=== PATIENT | female | born 1995 | race Caucasian/White ===

== ENCOUNTER 2023-12-03 08:02 | Inpatient (IN) | payer BC ==
[~2023-12-03 08:02] MED LIST: Bupivacaine 0.25% 10 ML SDV ONE; Sodium Chloride 0.9% 10 ML Syringe FLUSH PRN; Sodium Chloride 0.9% 10 ML Syringe FLUSH SCH; Sodium Chloride 0.9% 100 ML ONE; Sodium Chloride 0.9% 50 ML SDV ONE
[2023-12-03] MEDS: Lactated Ringers 1,000 ML IV SCH ×2 (08:30→16:11)
[2023-12-03 08:35] LABS: BASOPHILS PERCENT AUTO 0.3 % (0.0-1.0); EOSINOPHILS ABSOLUTE AUTO 0.1 K/mm3 (0.0-0.4); EOSINOPHILS PERCENT AUTO 1.5 % (0.0-6.0); HEMATOCRIT 40.2 % (37.0-47.0); HEMOGLOBIN 13.1 gm/dl (12.0-16.0); IMMATURE GRAN ABSOLUTE AUTO 0.02 K/mm3 (0.00-0.05); IMMATURE GRAN PERCENT AUTO 0.3 % (0.0-0.4); LYMPHOCYTES ABSOLUTE AUTO 1.6 K/mm3 (1.0-4.8); LYMPHOCYTES PERCENT AUTO 23.6 % (24.0-44.0); MEAN CORPUSCULAR HEMOGLOBIN 27.6 pg (28.0-32.0); MEAN CORPUSCULAR HGB CONC 32.6 g/dl (32.0-36.0); MEAN CORPUSCULAR VOLUME 84.6 fl (83.0-99.0); MEAN PLATELET VOLUME 9.1 fl (9.4-12.3); MONOCYTES ABSOLUTE AUTO 0.4 K/mm3 (0.0-0.8); MONOCYTES PERCENT AUTO 6.1 % (0.0-8.0); NEUTROPHILS ABSOLUTE AUTO 4.7 K/mm3 (1.8-7.7); NEUTROPHILS PERCENT AUTO 68.2 % (41.0-71.0); PLATELET COUNT,PLT 277 K/mm3 (150-400); RED BLOOD CELL COUNT 4.75 M/mm3 (4.10-5.30); WHITE BLOOD CELL COUNT,WBC 6.87 K/mm3 (3.9-11.3)
[2023-12-03] MEDS ORDERED: fentaNYL 100 MCG/2 ML SDV IVPUSH PRN (08:36)
[2023-12-03] MEDS ORDERED: HYDROmorphone 0.5 MG/0.5 ML Syringe IVPUSH PRN (08:36)
[2023-12-03] MEDS ORDERED: Ondansetron 4 MG/2 ML SDV IVPUSH PRN (08:36)
[2023-12-03] MEDS ORDERED: Vasopressin 20 UNIT/ML 10 ML MDV ONE (08:47)
[2023-12-03] MEDS ORDERED: Midazolam 1 MG/ML 2 ML SDV ONE (08:49)
[2023-12-03] MEDS ORDERED: fentaNYL 250 MCG/5 ML SDV ONE (08:49)
[2023-12-03] MEDS ORDERED: Propofol 200 MG/20 ML SDV ONE (08:49)
[2023-12-03] MEDS ORDERED: Rocuronium 50 MG/5 ML Vial ONE (08:50)
[2023-12-03] MEDS ORDERED: Dexamethasone 4 MG/ML 5 ML MDV ONE (08:50)
[2023-12-03] MEDS ORDERED: Succinylcholine 200 MG/10 ML MDV ONE (08:50)
[2023-12-03] MEDS ORDERED: Metoclopramide 10 MG/2 ML SDV ONE (08:50)
[2023-12-03] MEDS ORDERED: Lidocaine 2% 5 ML SDV ONE (08:52)
[2023-12-03] MEDS ORDERED: Ropivacaine 0.5% 5 MG/ML 30 ML SDV ONE (08:56)
[2023-12-03 08:58] LABS: POTASSIUM,K 3.9 mEq/L (3.5-5.1)
[2023-12-03 08:59] LABS: ANION GAP 10.9 (5-15); BUN/CREATININE RATIO 11.4 (14-18); CALCIUM 8.7 mg/dL (8.5-10.1); CREATININE 0.7 mg/dL (0.55-1.02); EST CRCL DRUG DOSING (CG) 113.63 mL/min
[2023-12-03] MEDS ORDERED: Vasopressin 20 Units/1 ML MDV ONE (09:00)
[2023-12-03] MEDS ORDERED: Sodium Chloride 0.9% 10 ML Syringe FLUSH SCH (09:00)
[2023-12-03] MEDS ORDERED: ceFAZolin 2 GM Vial ONE (09:15)
[2023-12-03] MEDS ORDERED: Tranexamic Acid 1,000 MG/10 ML Vial ONE (09:32)
[2023-12-03] MEDS ORDERED: EPINEPHrine 1 MG/ML SDV ONE (10:17)
[2023-12-03] MEDS ORDERED: Neostigmine Methylsulfate 10 MG/10 ML MDV ONE (10:45)
[2023-12-03] MEDS ORDERED: Ibuprofen 600 MG Tab PO PRN (11:02)
[2023-12-03] MEDS ORDERED: Acetaminophen/oxyCODONE 325-5 MG Tab PO PRN (11:02)
[2023-12-03] MEDS: Acetaminophen/oxyCODONE 325-5 MG Tab PO PRN ×2 (12:51→21:06)
[2023-12-03] MEDS: Ketorolac 15 MG/ML SDV IVPUSH PRN (16:12)
[2023-12-04] MEDS: Ketorolac 15 MG/ML SDV IVPUSH PRN (00:16)
[2023-12-04] MEDS: Acetaminophen/oxyCODONE 325-5 MG Tab PO PRN (04:27)
[2023-12-04] MEDS ORDERED: Ketorolac 30 MG/ML SDV IVPUSH PRN (08:50)
== END 2023-12-04 09:09 | disposition home or self-care (01) | DRG 519 ==
LOC: JD.OB 08:02 → JD.MS 09:14
PROVIDERS: ADMIT Obstetrics & Gynecology; ATTEND Obstetrics & Gynecology
PROC: 0UB90ZZ Excision of Uterus, Open Approach (ICD-10-PCS; principal; 2023-12-03 09:15)
DX: D25.0 Submucous leiomyoma of uterus (principal); F41.9 Anxiety disorder, unspecified; F32.A Depression, unspecified; N92.0 Excessive and frequent menstruation with regular cycle; Z90.49 Acquired absence of other specified parts of digestive tract; Z98.890 Other specified postprocedural states; Z87.891 Personal history of nicotine dependence
CPT/HCPCS: 36415; 80048; 85025; 86850; 86900; 86901; A9270-GY; J0171; J0330; J0690; J1100; J1170; J1885; J2250; J2704; J2710; J2765; J2795; J3010; J3490; J7120

== ENCOUNTER 2024-12-24 04:52 | Inpatient (IN) | payer OTHER ==
[~2024-12-24 04:52] MED LIST changes: -Bupivacaine 0.25% 10 ML SDV ONE; -Sodium Chloride 0.9% 100 ML ONE; -Sodium Chloride 0.9% 50 ML SDV ONE; +ceFAZolin 2 GM in Sodium Chloride 0.9% 10 ML IV ONE
[2024-12-24] MEDS ORDERED: Lactated Ringers 1,000 ML IV SCH (05:00)
[2024-12-24] MEDS ORDERED: Oxytocin/0.9 % Sodium Chloride 30 UNIT/500 ML BAG IV SCH (05:00)
[2024-12-24] MEDS: Lactated Ringers 1,000 ML IV SCH (05:40)
[2024-12-24 05:57] LABS: HEMATOCRIT 37.4 % (37.0-47.0); MEAN CORPUSCULAR HEMOGLOBIN 24.8 pg (28.0-32.0); MEAN PLATELET VOLUME 10.9 fl (9.4-12.3); PLATELET COUNT,PLT 295 K/mm3 (150-400); RED BLOOD CELL COUNT 4.67 M/mm3 (4.10-5.30); WHITE BLOOD CELL COUNT,WBC 11.39 K/mm3 (3.9-11.3)
[2024-12-24] MEDS ORDERED: Morphine PF 10 MG/10 ML SDV ONE (06:05)
[2024-12-24] MEDS ORDERED: Phenylephrine 1% 10 MG/ML SDV ONE (06:06)
[2024-12-24] MEDS ORDERED: dexmedeTOMIDine HCl 200 MCG/2 ML SDV ONE (06:06)
[2024-12-24] MEDS ORDERED: Dexamethasone 4 MG/ML SDV ONE (06:06)
[2024-12-24 06:14] LABS: HEMOGLOBIN 11.6 gm/dl (12.0-16.0); MEAN CORPUSCULAR VOLUME 80.1 fl (83.0-99.0)
[2024-12-24] MEDS ORDERED: Ropivacaine 0.5% 5 MG/ML 30 ML SDV ONE (06:15)
[2024-12-24] MEDS ORDERED: Bupivacaine 0.5% 30 ML SDV ONE (06:27)
[2024-12-24] MEDS: Citric Acid/Sodium Citrate Solution 30 ML Cup PO ONE (06:30)
[2024-12-24] MEDS: Metoclopramide 10 MG/2 ML SDV IVPUSH ONE (06:30)
[2024-12-24] MEDS ORDERED: Ondansetron 4 MG/2 ML SDV ONE (07:00)
[2024-12-24] MEDS ORDERED: ceFAZolin 2 GM Vial ONE (07:01)
[2024-12-24] MEDS ORDERED: Lactated Ringers 1,000 ML ONE (07:13)
[2024-12-24] MEDS ORDERED: fentaNYL 100 MCG/2 ML SDV ONE (07:47)
[2024-12-24] MEDS ORDERED: Ondansetron 4 MG/2 ML SDV IVPUSH PRN (07:48)
[2024-12-24] MEDS ORDERED: diphenhydrAMINE 50 MG/ML SDV IVPUSH PRN ×2 (07:48→09:24)
[2024-12-24] MEDS ORDERED: Meperidine 50 MG/ML Vial IVPUSH PRN (07:48)
[2024-12-24] MEDS ORDERED: fentaNYL 100 MCG/2 ML SDV IVPUSH PRN (07:48)
[2024-12-24] MEDS ORDERED: Ketorolac 30 MG/ML SDV ONE (07:49)
[2024-12-24] MEDS ORDERED: Naloxone 0.4 MG/ML SDV IVPUSH PRN (09:24)
[2024-12-24] MEDS ORDERED: Acetaminophen/oxyCODONE 325-5 MG Tab PO PRN (09:24)
[2024-12-24] MEDS ORDERED: ePHEDrine 50 MG/ML SDV IVPUSH PRN (09:24)
[2024-12-24] MEDS: Dextrose 5%-Lactated Ringers 1,000 ML IV SCH (09:45)
[2024-12-24] MEDS: Ketorolac 30 MG/ML SDV IVPUSH SCH ×2 (16:17→22:04)
[2024-12-25] MEDS: Acetaminophen/oxyCODONE 325-5 MG Tab PO PRN (07:07)
[2024-12-25] MEDS: Ibuprofen 600 MG Tab PO SCH (10:10)
[2024-12-26] MEDS: Docusate Sodium 100 MG Cap PO PRN (06:41)
== END 2024-12-26 11:57 | disposition home or self-care (01) | DRG 788 ==
LOC: JD.OB 04:52
PROVIDERS: ADMIT Obstetrics & Gynecology; ATTEND Obstetrics & Gynecology
PROC: 10D00Z1 Extraction of Products of Conception, Low, Open Approach (ICD-10-PCS; principal; 2024-12-24 07:00)
DX: O34.211 Maternal care for low transverse scar from previous cesarean delivery (principal); O99.344 Other mental disorders complicating childbirth; Z90.49 Acquired absence of other specified parts of digestive tract; Z72.0 Tobacco use; Z79.899 Other long term (current) drug therapy; Z3A.36 36 weeks gestation of pregnancy; Z37.0 Single live birth
CPT/HCPCS: 36415; 59025; 85027; 86592; 86850; 86900; 86901; A9270-GY; J0665; J0690; J1100; J1885; J2274; J2371; J2765; J2795; J3010; J7120; J7121